=== PATIENT | male | born 1995 | race Caucasian/White ===

== ENCOUNTER 2024-09-10 17:18 | Emergency (ER) | payer SELFPAY ==
[~2024-09-10] VITALS: Ht 182.9 cm; Wt 84.0 kg
[2024-09-10 17:25] VITALS: O2SAT 96
[2024-09-10 17:56] VITALS: BP 120/78; PULSE 92; RESP 18; TEMP 36.8; O2SAT 99
== END 2024-09-10 18:07 | disposition home or self-care (01) ==
LOC: ER 17:18
DX: G40.909 Epilepsy, unspecified, not intractable, without status epilepticus (principal)
CPT/HCPCS: 99283; Z7610; A4606